=== PATIENT | female | born 1990 | race African-American/Black ===

== ENCOUNTER 2021-09-04 10:17 | Emergency (ER) | payer MEDICAID, OTHER ==
[~2021-09-04] VITALS: Ht 172.7 cm; Wt 86.2 kg
--- NOTE | 2021-09-04 10:55 | NUR ---
BIBS. INDIGESTION, BLOATING AND GASSY X 2 WEEKS
--- NOTE | 2021-09-04 10:56 | NUR ---
SEEN BY DR LEVY AT BEDSIDE
--- NOTE | 2021-09-04 11:00 | NUR ---
BIBS. INDIGESTION, BLOATING AND GASSY X 2 WEEKS.PLACED COMFORTABLY IN BED. VITALS CHECKED.
--- NOTE | 2021-09-04 11:03 | NUR ---
[employer] AT BEDSIDE
[2021-09-04] MEDS ORDERED: SUCRALFATE 1 G TABLET ONE (11:15)
[2021-09-04 11:27] LABS: BASOPHILS # (AUTO) 0.1 K/uL (0.0-0.2); BASOPHILS % (AUTO) 1.4 % (0.0-2.0); EOSINOPHILS % (AUTO) 1.5 % (0.0-6.0); HEMATOCRIT 35 % (33-45); HEMOGLOBIN 12.3 g/dL (11.5-14.8); LYMPHOCYTES # (AUTO) 1.4 K/uL (0.8-4.8); LYMPHOCYTES % (AUTO) 31.4 % (20.0-44.0); MEAN CORPUSCULAR HGB CONC 35 g/dl (31.0-36.0); MEAN CORPUSCULAR VOLUME 84 fL (82-100); MONOCYTES # (AUTO) 0.3 K/uL (0.1-1.30); MONOCYTES % (AUTO) 7.6 % (2.0-12.0); NEUTROPHILS # (AUTO) 2.5 K/uL (1.8-8.9); NEUTROPHILS % (AUTO) 58.1 % (43.0-81.0); PLATELET COUNT (AUTO) 198 K/uL (150-450); RED BLOOD CELL COUNT(AUTO) 4.17 MIL/uL (4.0-5.2); WHITE BLOOD COUNT (AUTO) 4.3 K/uL (4.3-11.0)
[2021-09-04] MEDS ORDERED: SUCRALFATE 1 G TABLET PO ONE (11:30)
[2021-09-04 11:45] LABS: ALBUMIN 3.9 g/dL (3.4-5.0); BILIRUBIN,DIRECT 0.4 mg/dL (0.0-0.2); CALCIUM, SERUM 8.4 mg/dL (8.5-10.1); CREATININE 0.6 mg/dL (0.6-1.3); TOTAL PROTEIN, SERUM 7.4 g/dL (6.4-8.2)
[2021-09-04 13:03] LABS: POTASSIUM 3.9 mmol/L (3.5-5.1)
--- NOTE | 2021-09-04 13:34 | NUR ---
Patient discharged to home in stable condition. Written and verbal after care instructions given. Patient verbalizes understanding of instruction.
[2021-09-04 13:40] VITALS: BP 107/73
== END 2021-09-04 13:40 | disposition home or self-care (01) ==
LOC: ER 10:23
DX: R10.13 Epigastric pain (principal); Z86.79 Personal history of other diseases of the circulatory system; Z60.2 Problems related to living alone
CPT/HCPCS: 36415; 76705-TC; 80048-TC; 80076-TC; 83690-TC; 84703-TC; 85025-TC